=== PATIENT | male | born 1970 | race African-American/Black ===

== ENCOUNTER → 2020-10-15 | Outpatient (CLI) | payer BC ==
--- NOTE | 2020-10-15 13:01 | Diagnostic Imaging Report ---
INDICATION: Right knee pain. Time of exam 11:34 AM 3 views right knee were obtained. There is some mild medial compartmental narrowing. There is spurring of the tibial spines. There is some lucency projected within the medial tibial plateau on the AP and oblique views. Fracture lines cannot be entirely excluded although this would be unlikely due to complete absence of a joint effusion or lipohemarthrosis. No other suspicious abnormalities seen. IMPRESSION: Medial compartmental degenerative change. There is some linear lucency noted through the medial tibial plateau however no joint effusion is seen. If there is continued pain and clinical concern for fracture, CT through the right knee would be recommended for further evaluation. Dictated by: Dictated on workstation # [id number]
== END ==
LOC: RAD FS 11:27
PROVIDERS: ATTEND Family Medicine
DX: M17.11 Unilateral primary osteoarthritis, right knee (principal)
CPT/HCPCS: 73562

== ENCOUNTER 2021-06-16 05:34 | Outpatient (CLI) | payer BC ==
[~2021-06-16] VITALS: Ht 193 cm; Wt 112.3 kg
== END 2021-06-17 10:12 ==
LOC: PREOP 05:34
PROVIDERS: ATTEND Surgery
DX: Z01.818 Encounter for other preprocedural examination (principal)

== ENCOUNTER 2021-06-23 10:34 | Day surgery (SDC) | payer BC ==
[~2021-06-23] VITALS: Ht 193 cm; Wt 112.3 kg
[2021-06-23] MEDS ORDERED: LACTATED RINGERS 1,000 ML IV ONE (10:43)
[2021-06-23] MEDS ORDERED: LACTATED RINGERS 1,000 ML IV STA (10:43)
[2021-06-23] MEDS ORDERED: AMLO-250 PO (10:54)
[2021-06-23] MEDS ORDERED: HYDR25TA4 PO (10:54)
[2021-06-23 10:58] VITALS: BP 164/91
[2021-06-23] MEDS ORDERED: PROPOFOL INJECTION 50 ML IV ONE (12:35)
--- NOTE | 2021-06-23 13:13 | Progress Note-Post Operative ---
Post-Operative Progess Note Surgeon (s)/Professor Of Social Work (s) Surgeon BROOKE ROGER DO Professor Of Social Work: na Pre-Operative Diagnosis screening colonoscopy Post-Operative Diagnosis descending colon polyp Procedure & Operative Findings Date of Procedure 06/23/21 Procedure Performed/Findings colonoscopy c hot bx polypectomy x 1 Anesthesia Type per commercial real estate sales manager Estimated Blood Loss Estimated blood loss (mL): none Specimens/Packing Specimens Removed colon polyp BROOKE ROGER DO Jun 23, 2021 13:13
--- NOTE | 2021-06-23 13:13 | Discharge Inst-Simple/Standard ---
Discharge Inst-Standard Patient Instructions/Follow Up Plan of Care/Instructions/FU: 2 weeks dave Activity as Tolerated: Yes Discharge Diet: Regular Diet BROOKE ROGER DO Jun 23, 2021 13:13
[2021-06-23 13:17] VITALS: BP 121/77
[2021-06-23 13:22] VITALS: BP 120/76
[2021-06-23 13:25] VITALS: BP 120/82
[2021-06-23 14:15] VITALS: BP 140/98
--- NOTE | 2021-06-23 14:19 | Anesthesia-General Post-Op ---
MAC Patient Condition Mental Status/LOC: Same as Preop Cardiovascular: Satisfactory Nausea/Vomiting: Absent Respiratory: Satisfactory Pain: Controlled Complications: Absent Post Op Complications Complications None Follow Up Care/Instructions Patient Instructions None needed. Anesthesiology Discharge Order Discharge Order Patient is doing well, no complaints, stable vital signs, no apparent adverse anesthesia problems. No complications reported per nursing. DANG CAMPO CRNA Jun 23, 2021 14:19
[2021-06-23 14:30] VITALS: BP 140/98
--- NOTE | 2021-06-23 20:39 | OPERATIVE REPORT ---
DATE OF SERVICE: 06/23/2021 PREOPERATIVE DIAGNOSIS: Screening colonoscopy. POSTOPERATIVE DIAGNOSIS: Descending colon polyp. PROCEDURES PERFORMED: Colonoscopy with hot biopsy polypectomy x1. SURGEON: Brooke Peterson DO. ANESTHESIA: Per MEDICAL HEALTH RESEARCHER. ESTIMATED BLOOD LOSS: None. COMPLICATIONS: None. INDICATIONS FOR PROCEDURE: The patient is a 51-year-old male needing screening colonoscopy. He understands the risks and benefits of the procedure and wishes to proceed. Consent was signed in the chart. DESCRIPTION OF PROCEDURE: The patient was taken to the endoscopy suite and placed in a left lateral recumbent position. Timeout was performed. Digital rectal exam was performed. There were no palpable polyps, masses or ulcerations. Scope was inserted in the rectum and advanced all the way to cecum with minimal difficulty. Prep was adequate. Scope was then slowly retracted back. No polyps, masses or ulcerations within the cecum, ascending, and transverse colon. In the descending colon, a small polyp was present, which was able to be grasped and hot biopsy polypectomy was performed. Scope was then continuously and slowly retracted back. No other polyps, masses or ulcerations within the remainder of the descending and sigmoid colon. Once in the rectum, scope was retroflexed noting no other pathology. Scope was returned to its normal position, slowly withdrawn until completely removed. The patient tolerated the procedure well without any complications and was taken to the recovery room in a stable condition. RECOMMENDATIONS: The patient will need a repeat colonoscopy in five years. Any issues before that be seen at that time. The patient will follow up in two weeks to discuss pathology results. Job ID: [id number] DocumentID: [id number] Dictated Date: 06/23/2021 13:15:59 Project Engineering Manager Date: 06/23/2021 20:39:24 Dictated By: BROOKE PETERSON DO
== END 2021-06-23 14:30 | disposition home or self-care (01) ==
LOC: ENDO 10:34
PROVIDERS: ATTEND Surgery
DX: Z12.11 Encounter for screening for malignant neoplasm of colon (principal); K63.5 Polyp of colon; I10 Essential (primary) hypertension; F17.210 Nicotine dependence, cigarettes, uncomplicated

== ENCOUNTER 2022-08-24 10:57 | Emergency (ER) | payer BC ==
[~2022-08-24] VITALS: Ht 195.6 cm; Wt 115.7 kg
[~2022-08-24 10:57] MED LIST: AMLO-250 PO; HYDR25TA4 PO
[2022-08-24] MEDS ORDERED: FAMOTIDINE 20 MG (PEPCID) TABLET PO STA (11:07)
--- NOTE | 2022-08-24 11:10 | ED Cardiac General ---
History of Present Illness General Stated Complaint: CHEST PAIN Source: patient, RN/MD Exam Limitations: no limitations History of Present Illness Date Seen by Provider: Aug 24, 2022 Time Seen by Provider: 10:59 Initial Comments 52-year-old male with past medical history of hypertension coming in via private vehicle from walk-in clinic due to chest pain. Its been happening off and on for the past several months. Has not seen anyone for it as of yet, although has been to his primary care provider recently and started on a blood pressure medicine, amlodipine 5 mg. Within the past month, went back and doubled the dose of it. He did take it last night. Had 4 episodes of chest pain today each about an hour apart lasting roughly 10 to 15 minutes while he was working. He said he was able to calm down each time the pain went away. He says it felt l vicky he just needed to belch to get it to feel better. Denies any shortness of breath, fever, nausea, vomiting, weakness, numbness, abdominal pain, or any other concerns associated with it. Denies any prior history of DVT or PE, any lower extremity swelling or pain, recent surgery, recent long travel, and does not take any hormones. Per report from the walk-in clinic, his EKG was normal there, blood pressure was 180/110, and he was chest pain-free at that time Allergies and Home Medications Allergies Coded Allergies: No Known Drug Allergies (Unverified , 06/17/21) Patient Home Medication List Home Medication List Reviewed: Yes Amlodipine Besylate (Amlodipine Besylate) 5 Mg Tablet, 5 MG PO DAILY, (Reported) Entered as Reported by: PRECIOUS BULL on 06/23/21 1054 Aspirin (Aspirin) 81 Mg Tab.chew, 81 MG PO DAILY Prescribed by: SANDIP RIOS on 08/24/22 1308 Hydrochlorothiazide (Hydrochlorothiazide) 25 Mg Tablet, 25 MG PO DAILY, (Reported) Entered as Reported by: PRECIOUS BULL on 06/23/21 1054 Nitroglycerin (Nitroglycerin) 0.3 Mg Tab.subl, 0.3 MG SL q5 min PRN for chest pain Prescribed by: SANDIP RIOS on 08/24/22 1308 Review of Systems Review of Systems Constitutional: No fever EENTM: No Symptoms Reported Respiratory: No Symptoms Reported Cardiovascular: Chest Pain Gastrointestinal: No Symptoms Reported Genitourinary: No Symptoms Reported Musculoskeletal: no symptoms reported Skin: no symptoms reported Psychiatric/Neurological: No Symptoms Reported Endocrine: No Symptoms Reported Hematologic/Lymphatic: No Symptoms Reported All Other Systems Reviewed Negative Unless Noted: Yes Past Nnmckys-Kaaamc-Hxvzzb Hx Patient Social History Substance use?: No Seasonal Allergies Seasonal Allergies: No Past Medical History Surgeries: No Respiratory: No Cardiac: Yes Hypertension Neurological: No Genitourinary: No Gastrointestinal: No Musculoskeletal: No Endocrine: No HEENT: No Cancer: No Psychosocial: No Integumentary: No Blood Disorders: No Physical Exam Vital Signs Vital Signs - First Documented 08/24/22 11:00 Temp 35.3 Pulse 84 Resp 18 B/P (MAP) 152/80 (104) Pulse Ox 98 O2 Delivery Room Air Capillary Refill : Height, Weight, BMI Height: '" Weight: lbs. oz. kg; 30.14 BMI Method: General Appearance: No Apparent Distress, WD/WN HEENT: PERRL/EOMI, Normal ENT Inspection, Pharynx Normal Neck: Full Range of Motion, Normal Inspection, Non Tender, Supple Respiratory: Chest Non Tender, Lungs Clear, Normal Breath Sounds, No Accessory Muscle Use, No Respiratory Distress Cardiovascular: Regular Rate, Rhythm, No Edema, Normal Peripheral Pulses Gastrointestinal: Normal Bowel Sounds, Non Tender, Soft; No Distended, No Guarding Extremity: Normal Capillary Refill, Normal Inspection, Normal Range of Motion, Non Tender, No Calf Tenderness, No Pedal Edema Neurologic/Psychiatric: Alert, No Motor/Sensory Deficits, Normal Mood/Affect Skin: Normal Color, Warm/Dry Lymphatic: No Adenopathy Progress/Results/Core Measures Results/Orders Lab Results Laboratory Tests Test 08/24/22 11:05 08/24/22 12:30 Range/Units White Blood Count 12.0 H 4.3-11.0 10^3/uL Red Blood Count 5.06 4.30-5.52 10^6/uL Hemoglobin 16.1 13.3-17.7 g/dL Hematocrit 46 40-54 % Mean Corpuscular Volume 92 80-99 fL Mean Corpuscular Hemoglobin 32 25-34 pg Mean Corpuscular Hemoglobin Concent 35 32-36 g/dL Red Cell Distribution Width 14.0 10.0-14.5 % Platelet Count 251 130-400 10^3/uL Mean Platelet Volume 10.5 9.0-12.2 fL Immature Granulocyte % (Auto) 0 % Neutrophils (%) (Auto) 64 42-75 % Lymphocytes (%) (Auto) 27 12-44 % Monocytes (%) (Auto) 8 0-12 % Eosinophils (%) (Auto) 1 0-10 % Basophils (%) (Auto) 1 0-10 % Neutrophils # (Auto) 7.7 1.8-7.8 10^3/uL Lymphocytes # (Auto) 3.2 1.0-4.0 10^3/uL Monocytes # (Auto) 1.0 0.0-1.0 10^3/uL Eosinophils # (Auto) 0.1 0.0-0.3 10^3/uL Basophils # (Auto) 0.1 0.0-0.1 10^3/uL Immature Granulocyte # (Auto) 0.0 0.0-0.1 10^3/uL Prothrombin Time 12.8 12.2-14.7 SEC INR Comment 0.9 0.8-1.4 Activated Partial Thromboplast Time 27 24-35 SEC Sodium Level 138 135-145 MMOL/L Potassium Level 4.2 3.6-5.0 MMOL/L Chloride Level 102 98-107 MMOL/L Carbon Dioxide Level 27 21-32 MMOL/L Anion Gap 9 5-14 MMOL/L Blood Urea Nitrogen 10 7-18 MG/DL Creatinine 0.86 0.60-1.30 MG/DL Estimat Glomerular Filtration Rate 104 BUN/Creatinine Ratio 12 Glucose Level 97 70-105 MG/DL Calcium Level 9.5 8.5-10.1 MG/DL Corrected Calcium 9.1 8.5-10.1 MG/DL Magnesium Level 1.9 1.6-2.4 MG/DL Total Bilirubin 0.5 0.1-1.0 MG/DL Aspartate Amino Transf (AST/SGOT) 17 5-34 U/L Alanine Aminotransferase (ALT/SGPT) 18 0-55 U/L Alkaline Phosphatase 93 40-136 U/L Troponin I < 0.30 < 0.30 <0.30 NG/ML Total Protein 7.9 6.4-8.2 GM/DL Albumin 4.5 3.2-4.5 GM/DL Lipase 18 8-78 U/L My Orders Orders - SANDIP RIOS MD Cbc With Automated Diff (08/24/22 11:07) Magnesium (08/24/22 11:07) Chest 1 View Ap/Pa Only (08/24/22 11:07) Ekg Tracing (08/24/22 11:07) Comprehensive Metabolic Panel (08/24/22 11:07) Protime With Inr (08/24/22 11:07) Partial Thromboplastin Time (08/24/22 11:07) O2 (08/24/22 11:07) Monitor-Rhythm Ecg Trace Only (08/24/22 11:07) Aspirin Chewable Tablet (Baby Aspirin Ch (08/24/22 11:15) Ed Iv/Invasive Line Start (08/24/22 11:07) Lipase (08/24/22 11:07) Troponin I Fs (08/24/22 11:07) Lidocaine 2% Viscous 15 Ml (Xylocaine Vi (08/24/22 11:15) Famotidine Tablet (Pepcid Tablet) (08/24/22 11:07) Antacid Suspension (Mylanta Suspension (08/24/22 11:15) Troponin I Fs (08/24/22 12:30) Medications Given in ED Vital Signs/I&O 08/24/22 08/24/22 11:00 13:11 Temp 35.3 Pulse 84 78 Resp 18 18 B/P (MAP) 152/80 (104) 165/78 Pulse Ox 98 96 O2 Delivery Room Air Room Air Progress Progress Note : Progress Note 52-year-old male with above history coming in due to chest pain. ABCs were intact and vitals were stable on presentation. Physical exam reassuring with no focal abnormalities. EKG with no acute ischemic changes. Chest x-ray without acute findings. An IV was placed and basic labs were obtained including cardiac biomarkers. Troponin negative x2 on repeat. He has been pain-free even prior to coming here and has never had pain since being in the ER. I still concerned with his story given the exertional nature of it. I want him to withhold exerting himself, start daily baby aspirin, and follow-up with a business development as soon as possible. Initial ECG Impression Date: Aug 24, 2022 Initial ECG Impression Time: 11:06 Initial ECG Rate: 75 Initial ECG Rhythm: Normal Sinus Comment Narrow QRS, normal axis, no significant ST changes or T wave abnormality Diagnostic Imaging Diagonstic Imaging: Xray (chest) Comments NAME: EF[facility] REC#: [id number] PT STATUS: REG ER : 1970 PHYSICIAN: SANDIP RIOS MD ADMIT DATE: 08/24/22/ER FS Draft Date of Exam:08/24/22 CHEST 1 VIEW AP/PA ONLY EXAMINATION: Chest, one view. HISTORY: Chest pain. COMPARISON: None available. FINDINGS: The lung volumes are normal. No focal consolidation is seen. No large pleural effusion or pneumothorax is seen. The cardiomediastinal silhouette is normal in size and contour. No acute osseous abnormality is seen. IMPRESSION: 1. No acute pleural-parenchymal process. Dictated on workstation # [id number] Dict: 08/24/22 1146 Trans: 08/24/22 1149 [id number] Interpreted by: AYAKA YARBROUGH DO Electronically signed by: Departure Impression Primary Impression: Chest pain on exertion Disposition: 01 HOME, SELF-CARE Condition: Stable Departure-Patient Inst. Decision time for Depature: 13:05 Referrals: NO,LOCAL PHYSICIAN (PCP) Primary Care Physician CHRISTIANO FELIX JR, MD Patient Instructions: Chest Pain, Adult ED Add. Discharge Instructions: I am concerned that you are having chest pain when you exert yourself at all. I want you to take things easy, do not exercise or do any physical labor. If you begin having pain at all, be sure to rest. If the pain does not go away after resting, I want you to go to the ER. I do want you to schedule an appointment with Dr. Felix as soon as possible who is a business development. I also want you to start a daily baby aspirin which is 81 mg with your blood pressure medicine that you take at night. If you have the pain in the future, you can take the nitroglycerin tab. You can take this every 5 minutes for up to 3 doses over 15 minutes maximum. If you have pain after that, please come to the ER. Scripts Aspirin (Aspirin) 81 Mg Tab.chew 81 MG PO DAILY for 30 Days, #30 TAB Prov: SANDIP RIOS MD 08/24/22 Nitroglycerin (Nitroglycerin) 0.3 Mg Tab.subl 0.3 MG SL q5 min PRN for chest pain, #30 TAB max of 3 doses in 15 minutes Prov: SANDIP RIOS MD 08/24/22 Work/School Note: Work Release Form Date Seen in the Emergency Department: Aug 24, 2022 Return to Work: Aug 25, 2022 Other Restrictions Listed Below: no physical exertion until cleared by business development SANDIP RIOS MD Aug 24, 2022 11:10
[2022-08-24 11:14] LABS: BASOPHILS # (AUTO) 0.1 10^3/uL (0.0-0.1); BASOPHILS % (AUTO) 1 % (0-10); EOSINOPHILS # (AUTO) 0.1 10^3/uL (0.0-0.3); EOSINOPHILS % (AUTO) 1 % (0-10); HEMATOCRIT 46 % (40-54); HEMOGLOBIN 16.1 g/dL (13.3-17.7); LYMPHOCYTES # (AUTO) 3.2 10^3/uL (1.0-4.0); LYMPHOCYTES % (AUTO) 27 % (12-44); MEAN CORPUSCULAR HEMOGLOBIN 32 pg (25-34); MEAN CORPUSCULAR HGB CONC 35 g/dL (32-36); MEAN CORPUSCULAR VOLUME 92 fL (80-99); MEAN PLATELET VOLUME 10.5 fL (9.0-12.2); MONOCYTES % (AUTO) 8 % (0-12); NEUTROPHILS # (AUTO) 7.7 10^3/uL (1.8-7.8); NEUTROPHILS % (AUTO) 64 % (42-75); PLATELET COUNT 251 10^3/uL (130-400)
[2022-08-24] MEDS ORDERED: ASPIRIN 81 MG CHEW (CHILDREN'S ASA) PO ONE (11:15)
[2022-08-24] MEDS ORDERED: ANTACID SUSP 30 ML UDC (MYLANTA) PO ONE (11:15)
[2022-08-24] MEDS ORDERED: LIDOCAINE 2% VISCOUS 15 ML UDC PO ONE (11:15)
[2022-08-24 11:29] LABS: INR 0.9 (0.8-1.4); PROTHROMBIN TIME PATIENT 12.8 SEC (12.2-14.7)
[2022-08-24 11:34] LABS: BILIRUBIN,TOTAL 0.5 MG/DL (0.1-1.0); CALCIUM 9.5 MG/DL (8.5-10.1); CREATININE SERUM 0.86 MG/DL (0.60-1.30); MAGNESIUM 1.9 MG/DL (1.6-2.4); POTASSIUM 4.2 MMOL/L (3.6-5.0); TOTAL PROTEIN 7.9 GM/DL (6.4-8.2)
[2022-08-24 11:35] LABS: ALBUMIN 4.5 GM/DL (3.2-4.5)
--- NOTE | 2022-08-24 11:49 | Diagnostic Imaging Report ---
EXAMINATION: Chest, one view. HISTORY: Chest pain. COMPARISON: None available. FINDINGS: The lung volumes are normal. No focal consolidation is seen. No large pleural effusion or pneumothorax is seen. The cardiomediastinal silhouette is normal in size and contour. No acute osseous abnormality is seen. IMPRESSION: 1. No acute pleural-parenchymal process. Dictated by: Dictated on workstation # [id number]
[2022-08-24] MEDS ORDERED: NITR0.3T7 SL (13:08)
[2022-08-24] MEDS ORDERED: ASPI-999 PO (13:08)
[2022-08-24 13:11] VITALS: BP 165/78
== END 2022-08-24 13:13 | disposition home or self-care (01) ==
LOC: EDUNIT# 10:57 → ER FS 11:00
DX: R07.1 Chest pain on breathing (principal); I10 Essential (primary) hypertension
CPT/HCPCS: 36415; 71045; 80053; 83690; 83735; 84484; 85025; 85610; 85730; 93005; 93041

== ENCOUNTER → 2022-08-31 | Outpatient (CLI) | payer BC ==
[~2022-08-31] MED LIST changes: +ASPI-999 PO; +NITR0.3T7 SL
== END ==
LOC: CARDFS 12:58
PROVIDERS: ATTEND Internal Medicine Cardiovascular Disease
DX: I51.7 Cardiomegaly (principal); R94.31 Abnormal electrocardiogram [ECG] [EKG]
CPT/HCPCS: 93306

== ENCOUNTER → 2022-09-09 | Outpatient (CLI) | payer BC ==
[~2022-09-09] VITALS: Ht 195 cm; Wt 113.0 kg
[~2022-09-09] MED LIST changes: +CATHETER FLUSH 10 ML SYR IVP PRN
[2022-09-09 09:46] VITALS: BP 155/78
--- NOTE | 2022-09-09 15:21 | NUCLEAR STRESS TEST ---
TREADMILL NUCLEAR STRESS TEST Date of procedure: 09/09/2022. Primary care provider: No local physician. Admitting physician: Danny Felix Jr., MD. INDICATION: Abnormal. BASELINE ELECTROCARDIOGRAM: Sinus rhythm with nonspecific ST changes in the inferolateral leads. STRESS TEST PROCEDURE: The patient was exercised for a total of 5 minutes and 10 seconds of the standard Josesito protocol achieving a maximum MET level of 7.1. The resting heart rate was 81 bpm and the peak heart rate was 151 bpm, which represents 90% of the maximum predicted heart rate. The resting blood pressure was 155/78 mmHg and the peak blood pressure was 198/74 mmHg with resting hypertension. This represents a normal heart rate and a normal blood pressure r esponse to exercise with resting hypertension. The test was stopped due to target heart rate attained. There was no chest discomfort during the test. There were no arrhythmias during the test. The stress electrocardiogram was indeterminate due to the baseline abnormality. The patient exhibited fair exercise capacity for age. NUCLEAR PROCEDURE: The patient was administered 11 mCi of intravenous technetium 99m Tetrofosmin at rest for the rest images. The patient was subsequently administered 31.3 mCi of intravenous technetium 99 M Tetrofosmin at peak stress for the stress images. Following an appropriate wait after each injection, imaging was obtained. The images were subsequently processed and reformatted in the usual views. Gated imaging was obtained. The image quality was adequate with a mild degree of gastrointestinal and vertical motion artifact. CT attenuation correction was used as a adjunct to standard imaging. Both the corrected and uncorrected images were reviewed for interpretation. NUCLEAR RESULTS: There was a large, severe intensity, reversible mid to distal anterior, septal and apical defect with a large amount of inducible ischemia with a summed stress score of 29 and a summed difference score of 29. The left ventricle was dilated with an end-diastolic volume of 147 mL and an end-systolic volume of 84 mL. There was no evidence of transient ischemic dilatation. The TID ratio was 1.03. There was mid to distal anterior and apical hypokinesis with overall mild left ventricular systolic dysfunction with a calculated ejection fraction of 47%. IMPRESSION: 1. Normal heart rate and blood pressure response to exercise with resting hypertension. 2. There was no chest discomfort or arrhythmias during the test. 3. The stress electrocardiogram was indeterminate due to the baseline abnormalities. 4. The left ventricle was dilated. 5. There was a large, severe intensity, reversible mid to distal anterior, septal and apical defect with a large amount of inducible ischemia with a summed stress score of 29 and a summed difference score of 29. 6. There was mid to distal anterior and apical hypokinesis with overall mild left ventricular systolic dysfunction with a calculated ejection fraction of 47%. 7. This is an abnormal result representing an overall high risk for possible future coronary ischemic events. Certain portions of this document may have been dictated utilizing voice recognition technology. Inherent to this technology, typographical and grammatical errors may exist. As much as I am diligent to identify and correct these mistakes, some errors may remain in the document. DANNY FELIX JR, MD Sep 09, 2022 15:21
== END ==
LOC: CARD 07:58
PROVIDERS: ATTEND Internal Medicine Cardiovascular Disease
DX: R94.31 Abnormal electrocardiogram [ECG] [EKG] (principal)
CPT/HCPCS: 78452; 93017; A9502

== ENCOUNTER 2022-09-14 20:12 | Emergency (ER) | payer BC ==
[~2022-09-14] VITALS: Ht 195 cm; Wt 113.0 kg
[2022-09-14 20:12] VITALS: BP 168/89
[~2022-09-14 20:12] MED LIST changes: -CATHETER FLUSH 10 ML SYR IVP PRN
[2022-09-14 20:25] LABS: HEMATOCRIT 45 % (40-54); HEMOGLOBIN 14.6 g/dL (13.3-17.7); MEAN CORPUSCULAR HEMOGLOBIN 32 pg (25-34); MEAN CORPUSCULAR HGB CONC 32 g/dL (32-36); MEAN CORPUSCULAR VOLUME 99 fL (80-99); MEAN PLATELET VOLUME 11.2 fL (9.0-12.2); PLATELET COUNT 206 10^3/uL (130-400); WHITE BLOOD COUNT 13.6 10^3/uL (4.3-11.0)
--- NOTE | 2022-09-14 20:44 | ED CPR ---
HPI-CPR General Chief Complaint: Code Blue Stated Complaint: CODE BLUE Source of Information: EMS, Old Records (stress test from 09/09/2022) History of Present Illness Date Seen by Provider: Sep 14, 2022 Time Seen by Provider: 20:12 Initial Comments 52 yo male brought in by EMS from home as a CODE BLUE. He reportedly had been talking to someone on the phone at 1938 when he collapsed. EMS arrived at 194. Law enforcement and fire started chest compressions on arrival. When EMS arrived they intubated the patient and obtained IV access. He was in asystole initially and was given epinephrine as part of the ACLS protocol. He had a total of 4 doses of epinephrine administered by EMS. They had gotten a pulse back at 1 point and obtained an electrocardiogram that showed ST elevation in the septal and anterior leads. He quickly went into V. tach and was shocked. He had pulseless electrical activity after that and did not have return of organized rhythm. He never had any spontaneous respiratory efforts. On arrival to the emergency department at 2011 he had been given the dose of epinephrine by EMS as they were coming out of the ambulance. With pulse check on arrival to the ED he had no pulse and was still in PEA. Additional dose of epinephrine administered and compressions continued with Piter chest compression device. On his next pulse check the monitor showed tachycardia and attempts to find pulse were not successful and doppler was used but still not found pulse so Piter chest compression restarted. Additional dose of epinephrine administered and circulated for 2 minutes. Recheck for pulse at that point was still not having a palpable pulse bedside ultrasound performed by myself and heart visualized but no activity so was in PEA. It was felt that further efforts and attempts were futile as patient had fixed and dilated pupils and no spontaneous cardiac activity. Further resuscitation efforts were ceased at 2024 and at 2032 he was in asystole. He was receiving ventilation with a bag through his ET tube that was placed by EMS prior to arrival in ED. Construction Helper, Dr. Stevenson, was contacted at 2051 and he did not feel the patient needed an autopsy since he had apparent heart attack and recent stress test on 09/09 showing ischemic changes in septal, inferior and apical areas. As the patient did not have a PCP Dr. Stevenson agreed to sign his certificate as myocardial infarction without needing an autopsy. Initial Complaints: Collapsed Witnessed Arrest: Yes (reportedly talking on phone when he collapsed) Bystander CPR: No (not until Fire and EMS with [facility] arrived) Down-Time Before ACLS: approximately 7 minutes Paramedics Initial Findings: Asystole, No Pulse, No Respirations, Unresponsive Pre Hospital Treatment: Bag Valve Mask, CPR/Thumper, Defibrillation, Intubation, Oxygen, IV Fluids, Epinephrine (mg) (4) Allergies and Home Medications Allergies Coded Allergies: No Known Drug Allergies (Unverified , 06/17/21) Patient Home Medication List Home Medication List Reviewed: Yes Amlodipine Besylate (Amlodipine Besylate) 5 Mg Tablet, 5 MG PO DAILY, (Reported) Entered as Reported by: PRECIOUS BULL on 06/23/21 1054 Aspirin (Aspirin) 81 Mg Tab.chew, 81 MG PO DAILY Prescribed by: SANDIP RIOS on 08/24/22 1308 Hydrochlorothiazide (Hydrochlorothiazide) 25 Mg Tablet, 25 MG PO DAILY, (Reported) Entered as Reported by: PRECIOUS BULL on 06/23/21 1054 Nitroglycerin (Nitroglycerin) 0.3 Mg Tab.subl, 0.3 MG SL q5 min PRN for chest pain Prescribed by: SANDIP RIOS on 08/24/22 1308 Review of Systems Review of Systems Constitutional: no symptoms reported Other Comments Unable to obtain ROS as patient was actively being coded and he did not regain spontaneous circulation or respirations. Past [id number] Hx Patient Social History Tobacco Use?: Yes Seasonal Allergies Seasonal Allergies: No Past Medical History Surgery/Hospitalization HX: Coronary Artery disease with positive stress test on 09/09/2022 Surgeries: No Respiratory: No Cardiac: Yes Hypertension Neurological: No Genitourinary: No Gastrointestinal: No Musculoskeletal: No Endocrine: No HEENT: No Cancer: No Psychosocial: No Integumentary: No Blood Disorders: No Physical Exam Vital Signs Vital Signs - First Documented 09/14/22 20:12 Pulse 124 Resp 43 B/P (MAP) 168/89 (115) Pulse Ox 93 O2 Delivery Ambu Bag Capillary Refill : Height, Weight, BMI Height: '" Weight: lbs. oz. kg; 29.71 BMI Method: General Appearance: Obese, Other (patient unresponsive and actively receiving CPR and resuscitation efforts on arrival to ED.) HEENT: No PERRL/EOMI (pupils fixed and dilated) Respiratory: Other (no spontaneous respirations. Good and equal breath sounds bilaterally with bag ventilation through ET tube) Cardiovascular: Other (no spontaneous heart beat with auscultation or by palpation. PEA on library monitor) Gastrointestinal: No Pulsatile Mass, Soft Neurologic/Psychiatric: Other (unresponsive with no response to CPR efforts) Skin: Warm/Dry Focused Exam Lactate Level 09/14/22 20:16: Lactic Acid Level 11.97*H Lactic Acid Level Laboratory Tests Test 09/14/22 20:16 Lactic Acid Level 11.97 MMOL/L (0.50-2.00) *H Procedures/Interventions CPR: 52 yo male brought in by EMS from home as a CODE BLUE. He reportedly had been talking to someone on the phone at 1938 when he collapsed. EMS arrived at 1941. Law enforcement and fire started chest compressions on arrival. When EMS arrived they intubated the patient and obtained IV access. He was in asystole initially and was given epinephrine as part of the ACLS protocol. He had a total of 4 doses of epinephrine administered by EMS. They had gotten a pulse back at 1 point and obtained an electrocardiogram that showed ST elevation in the septal and anterior leads. He quickly went into V. tach and was shocked. He had pulseless electrical activity after that and did not have return of organized rhythm. He never had any spontaneous respiratory efforts. On arrival to the emergency department at 2011 he had been given the dose of epinephrine by EMS as they were coming out of the ambulance. With pulse check on arrival to the ED he had no pulse and was still in PEA. Additional dose of epinephrine administered and compressions continued with Piter chest compression device. On his next pulse check the monitor showed tachycardia and attempts to find pulse were not successful and doppler was used but still not found pulse so Piter chest compression restarted. Additional dose of epinephrine administered and circulated for 2 minutes. Recheck for pulse at that point was still not having a palpable pulse bedside ultrasound performed by myself and heart visualized but no activity so was in PEA. It was felt that further efforts and attempts were futile as patient had fixed and dilated pupils and no spontaneous cardiac activity. Further resuscitation efforts were ceased at 2024 and at 2032 he was in asystole. He was receiving ventilation with a bag through his ET tube that was placed by EMS prior to arrival in ED. Construction Helper, Dr. Stevenson, was contacted at 2051 and he did not feel the patient needed an autopsy since he had apparent heart attack and recent stress test on 09/09 showing ischemic changes in septal, inferior and apical areas. As the patient did not have a PCP Dr. Stevenson agreed to sign his certificate as myocardial infarction without needing an autopsy. Rhythm: Asystole Progress/Results/Core Measures Results/Orders Lab Results Laboratory Tests Test 09/14/22 20:16 Range/Units White Blood Count 13.6 H 4.3-11.0 10^3/uL Red Blood Count 4.57 4.30-5.52 10^6/uL Hemoglobin 14.6 13.3-17.7 g/dL Hematocrit 45 40-54 % Mean Corpuscular Volume 99 80-99 fL Mean Corpuscular Hemoglobin 32 25-34 pg Mean Corpuscular Hemoglobin Concent 32 32-36 g/dL Red Cell Distribution Width 14.1 10.0-14.5 % Platelet Count 206 130-400 10^3/uL Mean Platelet Volume 11.2 9.0-12.2 fL Sodium Level 143 135-145 MMOL/L Potassium Level 2.9 L 3.6-5.0 MMOL/L Chloride Level 99 98-107 MMOL/L Carbon Dioxide Level 18 L 21-32 MMOL/L Anion Gap 26 H 5-14 MMOL/L Blood Urea Nitrogen 16 7-18 MG/DL Creatinine 1.50 H 0.60-1.30 MG/DL Estimat Glomerular Filtration Rate 55 BUN/Creatinine Ratio 11 Glucose Level 317 H 70-105 MG/DL Lactic Acid Level 11.97 *H 0.50-2.00 MMOL/L Calcium Level 9.2 8.5-10.1 MG/DL Corrected Calcium 9.5 8.5-10.1 MG/DL Magnesium Level 2.8 H 1.6-2.4 MG/DL Total Bilirubin 0.2 0.1-1.0 MG/DL Aspartate Amino Transf (AST/SGOT) 115 H 5-34 U/L Alanine Aminotransferase (ALT/SGPT) 158 H 0-55 U/L Alkaline Phosphatase 86 40-136 U/L Troponin I 0.63 *H <0.30 NG/ML Total Protein 5.8 L 6.4-8.2 GM/DL Albumin 3.6 3.2-4.5 GM/DL My Orders Orders - ENYART,JAYANT E MD Cbc No Diff (09/14/22 20:16) Comprehensive Metabolic Panel (09/14/22 20:16) Magnesium (09/14/22 20:16) Arterial Blood Gas (09/14/22 20:16) Lactic Acid Analyzer (09/14/22 20:16) Troponin I Fs (09/14/22 20:16) Vital Signs/I&O 09/14/22 20:12 Pulse 124 Resp 43 B/P (MAP) 168/89 (115) Pulse Ox 93 O2 Delivery Ambu Bag Progress Progress Note #1: Progress Note 52 yo male brought in by EMS from home as a CODE BLUE. He reportedly had been talking to someone on the phone at 1938 when he collapsed. EMS arrived at 1941. Law enforcement and fire started chest compressions on arrival. When EMS arrived they intubated the patient and obtained IV access. He was in asystole initially and was given epinephrine as part of the ACLS protocol. He had a total of 4 doses of epinephrine administered by EMS. They had gotten a pulse back at 1 point and obtained an electrocardiogram that showed ST elevation in the septal and anterior leads. He quickly went into V. tach and was shocked. He had pulseless electrical activity after that and did not have return of organized rhythm. He never had any spontaneous respiratory efforts. On arrival to the emergency department at 2011 he had been given the dose of epinephrine by EMS as they were coming out of the ambulance. With pulse check on arrival to the ED he had no pulse and was still in PEA. Additional dose of epinephrine administered and compressions continued with Piter chest compression device. On his next pulse check the monitor showed tachycardia and attempts to find pulse were not successful and doppler was used but still not found pulse so Piter chest compression restarted. Additional dose of epinephrine administered and c irculated for 2 minutes. Recheck for pulse at that point was still not having a palpable pulse bedside ultrasound performed by myself and heart visualized but no activity so was in PEA. It was felt that further efforts and attempts were futile as patient had fixed and dilated pupils and no spontaneous cardiac activity. Further resuscitation efforts were ceased at 2024 and at 2032 he was in asystole. He was receiving ventilation with a bag through his ET tube that was placed by EMS prior to arrival in ED. Construction Helper, Dr. Stevenson, was contacted at 2051 and he did not feel the patient needed an autopsy since he had apparent heart attack and recent stress test on 09/09 showing ischemic changes in septal, inferior and apical areas. As the patient did not have a PCP Dr. Stevenson agreed to sign his certificate as myocardial infarction without needing an autopsy based on recent stress test and presentation tonight. Progress Note #2: Progress Note Labs were obtained from IV access. His white blood cell count was elevated to 13.6 which could be related to stress. Has hemoglobin was normal at 14.6 with 206 platelets. Chemistry panel showed low potassium at 2.9, elevated glucose of 317, elevated creatinine of 1.5, elevated lactic acid of 11.97, troponin I of 0.63, elevated magnesium of 2.8. On review of the electrocardiogram obtained by EMS when patient did have a brief return of rhythm it showed ST elevation in multiple leads. He never had return of spontaneous circulation here in the ED to be able to obtain any further electrocardiogram tracing or further treatment for myocardial infarction. Departure Impression Primary Impression: Sudden cardiac arrest Additional Impressions: Myocardial infarction acute Qualified Codes: I21.9 - Acute myocardial infarction, unspecified Unsuccessful cardiopulmonary resuscitation Disposition: 20 (2032) Condition: (2032) Departure-Patient Inst. Referrals: NO,LOCAL PHYSICIAN (PCP/Family) Primary Care Physician JAYANT DE LA TORRE MD Sep 14, 2022 20:44
[2022-09-14 20:53] LABS: BILIRUBIN,TOTAL 0.2 MG/DL (0.1-1.0); CALCIUM 9.2 MG/DL (8.5-10.1); CREATININE SERUM 1.5 MG/DL (0.60-1.30); MAGNESIUM 2.8 MG/DL (1.6-2.4); POTASSIUM 2.9 MMOL/L (3.6-5.0)
[2022-09-14 20:54] LABS: ALBUMIN 3.6 GM/DL (3.2-4.5); TOTAL PROTEIN 5.8 GM/DL (6.4-8.2)
== END 2022-09-15 05:40 | disposition expired ==
LOC: EDUNIT# 20:12 → ER FS 20:13
DX: I46.9 Cardiac arrest, cause unspecified (principal); I21.9 Acute myocardial infarction, unspecified; E87.6 Hypokalemia; R73.9 Hyperglycemia, unspecified; D72.829 Elevated white blood cell count, unspecified; R74.02 Elevation of levels of lactic acid dehydrogenase [LDH]; E83.42 Hypomagnesemia; E66.9 Obesity, unspecified; Z68.29 Body mass index [BMI] 29.0-29.9, adult
CPT/HCPCS: 36415; 80053; 83605; 83735; 84484; 85027; 99283